=== PATIENT | female | born 1990 | race Caucasian/White ===

== ENCOUNTER 2021-02-13 16:02 | Emergency (ER) | payer MEDICAID ==
[~2021-02-13] VITALS: Ht 162.6 cm; Wt 75.6 kg
[2021-02-13 16:13] VITALS: BP 124/97
[2021-02-13] MEDS ORDERED: FLUORESCEIN 1MG EYE STRIP. OU ONE (16:15)
[2021-02-13] MEDS ORDERED: TETRACAINE 0.5% OPHTH SOLUTION 4ML BOTTLE. OU ONE (16:15)
[2021-02-13] MEDS ORDERED: TETRACAINE 0.5% OPHTH SOLUTION 4ML BOTTLE. ONE (16:20)
[2021-02-13] MEDS ORDERED: FLUORESCEIN 1MG EYE STRIP. ONE (16:20)
[2021-02-13] MEDS ORDERED: ERYT1OIN6 OP (16:59)
--- NOTE | 2021-02-13 17:01 | PHYS DOC ---
Past History Past Surgical History: Other Alcohol Use: None General Adult EDM: Chief Complaint: EYE PROBLEMS HPI: HPI: 30-year-old female with no significant past medical history presents to the ED with her significant male other, (patient consents to his/her/their knowledge and involvement in pts' medical care), with complaints of sudden onset left eye pain after patient accidentally hit her eye with paper flyer at a grocery store. Patient does not wear contact lenses or glasses. Denies any vision loss but reports pain and foreign body sensation. Does states she had glitter eye make- up on her upper eyelid. Denies any blunt trauma to the head or neck. Tetanus updated 1 year ago over November 19 weekend. Review of Systems: Review of Systems: Constitutional: Denies fever or chills Eyes: Denies vision loss or eye discharge HENT: Denies nasal congestion or sore throat Respiratory: Denies cough or shortness of breath Cardiovascular: Denies chest pain or edema GI: Denies nausea or vomiting : Denies dysuria or vaginal bleeding Musculoskeletal: Denies back pain or joint pain Integument: Denies rash or diaphoresis Neurologic: Denies headache or neck pain Psychiatric: Denies depression or anxiety Current Medications: Current Meds: Current Medications Medications (Trade) Dose Ordered Sig/Raul Start Time Stop Time Status Last Admin Dose Admin Fluorescein Sodium (Ful-Eunice 1mg) 1 strip STK-MED ONCE 02/13/21 16:20 02/13/21 16:20 DC Tetracaine HCl (Tetracaine) 40 drop STK-MED ONCE 02/13/21 16:20 02/13/21 16:20 DC Allergies: Allergies: Allergies Coded Allergies Type Severity Reaction Last Updated Verified Penicillins Allergy Unknown 02/13/21 Yes Physical Exam: PE: Constitutional: Photophobia obvious, nontoxic appearing, afebrile HENT: Normocephalic, atraumatic, Eyes: PERRLA, EOMI, conjunctiva normal, no discharge, no ciliary flush, fluorescein uptake at 12 o'clock position in a crescent shape of her cornea with negative Carole sign, normal-appearing globe-not flat or rock hard appearing. Neck: Normal range of motion, supple, Cardiovascular: S1/2 present, regular rhythm Lungs & Thorax: Speaking in full sentences, bilateral equal chest rise, no tachypnea or increased work of breathing Skin: Warm, dry, no erythema, no rash. [] Extremities: No tenderness, no cyanosis, Neurologic: Alert and oriented X 3, steady gait,, no focal deficits noted. [] Psychologic: Affect normal, judgement normal, mood normal. [] Current Patient Data: Vital Signs: Vital Signs Date Time Temp Pulse Resp B/P (MAP) Pulse Ox O2 Delivery O2 Flow Rate FiO2 02/13/21 16:13 112 18 124/97 (106) 98 EKG: EKG: [] Radiology/Procedures: Radiology/Procedures: [] Heart Score: C/O Chest Pain: No Risk Factors: Risk Factors: DM, Current or recent (<one month) smoker, HTN, HLP, family history of CAD, obesity. Risk Scores: Score 0 - 3: 2.5% MACE over next 6 weeks - Discharge Home Score 4 - 6: 20.3% MACE over next 6 weeks - Admit for Clinical Observation Score 7 - 10: 72.7% MACE over next 6 weeks - Early Invasive Strategies Course & Med Decision Making: Course & Med Decision Making Pertinent Labs and Imaging studies reviewed. (See chart for details) Concern for accidental left eye injury with corneal abrasion, no Carole sign or sign of globe rupture. Patient denies any blurry vision and steady gait and is tolerating pain well after tetracaine application. Will discharge home with strict ED return precautions were given for worsening pain, blurry vision or rash. Encouraged urgent outpatient follow-up with PMD and ophthalmology in 48 hours. Life-threatening processes were considered but are low suspicion at this time, given history, physical exam and ED workup. Pt was educated on all prescription medications and adverse effects. All patient's questions were answered and pt was stable at time of discharge. Life/limb-threatening differential includes but is not limited to, acute angle- closure glaucoma, uveitis, corneal abrasion, CRVO/CRAO, PRES, retinal detachment, vitreous hemorrhage, temporal arteritis, optic neuritis, high- altitude retinopathy foreign body, globe rupture, episcleritis, corneal ulcer, traumatic iritis, hyphema or empyema, orbital cellulitis, orbital hematoma, lens dislocation, orbital wall fracture or toxidrome (digoxin, methanol, anticholinergic, hallucinogenic, etc). I have spoken with the patient and/or caregivers. I explained the patient's condition, diagnoses and treatment plan based on the information available to me at this time. I have answered the patient and/or caregiver's questions and addressed any concerns. The patient and/or caregivers have a good understanding of patient's diagnosis, condition and treatment plan as can be expected at this point. Vital signs have been stable. Patient's condition is stable and ofelia ropriate for discharge from the emergency department. Patient will pursue further outpatient evaluation with primary care physician or other designated or consulting physician as outlined in the discharge instructions. The patient and/or caregivers are agreeable to this plan of care and follow-up instructions have been explained in detail. The patient and/or caregivers have received these instructions in written form and have expressed an understanding of the discharge instructions. The patient and/or caregivers are aware that any significant change of condition or worsening of symptoms should prompt immediate return to this or the closest emergency department or call to [id number] Disclaimer: Prema Disclaimer: This electronic medical record was generated, in whole or in part, using a voice recognition dictation system. Departure Departure: Impression: Primary Impression: Left corneal abrasion Disposition: 01 HOME / SELF CARE / HOMELESS Condition: STABLE Referrals: PCP,NO (PCP) Follow up with your pcp in 1-2 days or [facility] [phone] OR [facility]-Dr. Melchor [phone] Patient Instructions: Eye - Corneal Abrasion Additional Instructions: FOLLOW UP WITH OPTHALMOLOGY: FOR DEFINITIVE MANAGEMENT within 2 days [facility] [place] [address] [address] EMERGENCY DEPARTMENT GENERAL DISCHARGE INSTRUCTIONS Thank you for coming to [facility] (ED) today and trusting us with you care. We trust that you had a positivie experience in our Emergency Department. If you wish to speak to the department management, you may call the director at [phone]. YOUR FOLLOW UP INSTRUCTIONS ARE FOLLOWS: 1. Do you have a private Doctor? If you do not have a private doctor, please ask for a resource list of physicians or clinics that may be able to assist you with follow up care. 2. The Emergency Physician has interpreted your x-rays. The X-Ray specialist will also review them. If there is a change in the findings, you will be notified in 48 hours when at all possible. 3. A lab test or culture has been done, your results will be reviewed and you will be notified if you need a change in treatment. ADDITIONAL INSTRUCTIONS AND INFORMATION: 1. Your care today has been supervised by a physician who is specially trained in emergency care. Many problems require more than one evaluation for a complete diagnosis and treatment. We recommend that you schedule your follow up appointment as recommended to ensure complete treatment of you illness or injury. If you are unable to obtain follow up care and continue to have a problem, or if your condition worsens, we recommend that you return to the ED. 2. We are not able to safely determine your condition over the phone nor are we able to give sound medical advice over the phone. For these safety reasons, if you call for medical advice we will ask you to come to the ED for further evaluation. 3. If you have any questions regarding these discharge instructions please call the ED at [phone]. SAFETY INFORMATION: In the interest of safety, wellness, and injury prevention; we encourage you to wear your sealbelt, if you smoke; quite smoking, and we encourage family to use a protective helmet for bicycling and other sporting events that present an increased risk for head injury. IF YOUR SYMPTOMS WORSEN OR NEW SYMPTOMS DEVELOP, OR YOU HAVE CONCERNS ABOUT YOUR CONDITION; OR IF YOUR CONDITION WORSENS WHILE YOU ARE WAITING FOR YOUR FOLLOW UP APPOINTMENT; EITHER CONTACT YOUR PRIMARY CARE DOCTOR, THE PHYSICIAN WHOSE NAME AND NUMBER YOU WERE GIVEN, OR RETURN TO THE ED IMMEDIATELY. Scripts Erythromycin Base (Erythromycin) 1 Gm Oint...g. 1 CM OP QID for left eye abrasion for 5 Days, MISC ~1 cm ribbon into affected eye qid for 5 days Prov: KIMI CRUMP DO 02/13/21 KIMI CRUMP DO Feb 13, 2021 17:01
== END 2021-02-13 17:21 | disposition home or self-care (01) ==
LOC: ER 16:02
DX: S05.02XA Injury of conjunctiva and corneal abrasion without foreign body, left eye, initial encounter (principal); Z88.0 Allergy status to penicillin; W22.8XXA Striking against or struck by other objects, initial encounter; Y93.89 Activity, other specified; Y92.89 Other specified places as the place of occurrence of the external cause; Y99.8 Other external cause status
CPT/HCPCS: 99283